=== PATIENT | male | born 1990 | race Caucasian/White ===

== ENCOUNTER 2017-06-15 12:51 | Inpatient (IN) | payer MEDICAID ==
[~2017-06-15] VITALS: Ht 172.7 cm; Wt 75.0 kg
[2017-06-15 12:51] VITALS: Ht 172.7 cm; Wt 75.0 kg
[2017-06-15 14:42] LABS: PLATELET COUNT 356 x10^3mcL (130-400); RED CELL DISTRIBUTION WIDTH 12.6 % (11.5-14.5)
[2017-06-15 15:03] LABS: CALCIUM 9.2 mg/dL (8.5-10.1); CARBON DIOXIDE 26.8 mmol/L (21-32); CHLORIDE SERUM 99 mmol/L (98-107); CREATININE SERUM 0.9 mg/dL (0.7-1.3); GFR1 > 60 mL/min; GLUCOSE SERUM 94 mg/dL (74-106); POTASSIUM SERUM 3.8 mmol/L (3.5-5.1); SODIUM SERUM 135 mmol/L (136-145)
[2017-06-15 15:05] LABS: ALBUMIN 3.9 g/dL (3.4-5.0); ALKALINE PHOSPHATASE 97 U/L (46-116); ALT/SGPT 29 U/L (16-63); AST/SGOT 23 U/L (15-37); BILIRUBIN TOTAL 0.58 mg/dL (0.20-1.00); C REACTIVE PROTEIN 2.8 mg/dL (<=0.9); TOTAL PROTEIN, SERUM 8.1 g/dL (6.4-8.2)
[2017-06-15 15:17] LABS: BAND NEUTROPHIL 2 % (0-10); BASOPHIL 0 % (0-2); MONOCYTE 5 % (0-7); SEGMENTED NEUTROPHILS 87 % (37-75); rbc morphology (normal/abnorm) ABNORMAL (NORMAL)
[2017-06-15 15:58] LABS: ERYTHROCYTE SED RATE 21 mm/hr (0-15)
[2017-06-15 18:23] LABS: UA SPECIFIC GRAVITY 1.015 (1.005-1.035); microscopic required? YES; urine erythrocyte NEGATIVE (NEGATIVE)
[2017-06-15 21:06] VITALS: BP 151/84
[2017-06-15 22:01] LABS: MAGNESIUM 1.9 mg/dL (1.8-2.4); PHOSPHOROUS 1.9 mg/dL (2.5-4.9)
[2017-06-15 22:03] LABS: CHOLESTEROL/HDL RATIO 2.8
[2017-06-15 22:04] LABS: T3 TOTAL 1.09 ng/mL
[2017-06-15 22:14] LABS: T4(THYROXINE) 8.6 ug/dL (4.7-13.3)
[2017-06-16 01:14] LABS: AMPHETAMINE QUAL UR POSITIVE (NEG <=1000)
[2017-06-16 05:07] VITALS: BP 115/64
[2017-06-16 08:34] LABS: PLATELET COUNT 284 x10^3mcL (130-400); RED CELL DISTRIBUTION WIDTH 12.6 % (11.5-14.5)
[2017-06-16 08:40] LABS: CALCIUM 7.9 mg/dL (8.5-10.1); CARBON DIOXIDE 27.9 mmol/L (21-32); CHLORIDE SERUM 102 mmol/L (98-107); CREATININE SERUM 1.1 mg/dL (0.7-1.3); GFR1 > 60 mL/min; GLUCOSE SERUM 95 mg/dL (74-106); POTASSIUM SERUM 4.1 mmol/L (3.5-5.1); SODIUM SERUM 136 mmol/L (136-145)
[2017-06-16 09:44] VITALS: BP 117/68
[2017-06-16 11:21] LABS: BAND NEUTROPHIL 1 % (0-10); BASOPHIL 0 % (0-2); MONOCYTE 4 % (0-7); SEGMENTED NEUTROPHILS 93 % (37-75)
[2017-06-16 11:22] LABS: PLATELET MORPHOLOGY PLATELETS NORMAL; rbc morphology (normal/abnorm) NORMAL (NORMAL)
[2017-06-16 13:06] VITALS: BP 109/64
[2017-06-16 17:14] VITALS: BP 113/69
[2017-06-16 21:26] VITALS: BP 113/64
[2017-06-17 05:24] VITALS: BP 124/77
[2017-06-17 07:19] LABS: PLATELET COUNT 271 x10^3mcL (130-400); RED CELL DISTRIBUTION WIDTH 12.1 % (11.5-14.5)
[2017-06-17 07:48] LABS: CALCIUM 8.9 mg/dL (8.5-10.1); CARBON DIOXIDE 27.2 mmol/L (21-32); CHLORIDE SERUM 102 mmol/L (98-107); CREATININE SERUM 0.9 mg/dL (0.7-1.3); GFR1 > 60 mL/min; GLUCOSE SERUM 95 mg/dL (74-106); PHOSPHOROUS 2.3 mg/dL (2.5-4.9); POTASSIUM SERUM 3.9 mmol/L (3.5-5.1); SODIUM SERUM 138 mmol/L (136-145)
[2017-06-17 08:11] LABS: BAND NEUTROPHIL 2 % (0-10); BASOPHIL 0 % (0-2); MONOCYTE 4 % (0-7); SEGMENTED NEUTROPHILS 89 % (37-75)
[2017-06-17 08:12] LABS: PLATELET MORPHOLOGY PLATELETS NORMAL
[2017-06-17 09:00] VITALS: BP 124/85
[2017-06-17 18:11] VITALS: BP 121/83
[2017-06-17 21:17] VITALS: BP 99/54
[2017-06-18 05:13] VITALS: BP 113/55
[2017-06-18 06:24] LABS: BASOPHIL % 0.1 % (0-2); PLATELET COUNT 298 x10^3mcL (130-400); RED CELL DISTRIBUTION WIDTH 12.5 % (11.5-14.5)
[2017-06-18 06:53] LABS: CALCIUM 8.3 mg/dL (8.5-10.1); CARBON DIOXIDE 28.5 mmol/L (21-32); CHLORIDE SERUM 107 mmol/L (98-107); GFR1 > 60 mL/min; GLUCOSE SERUM 103 mg/dL (74-106); PHOSPHOROUS 3.3 mg/dL (2.5-4.9); POTASSIUM SERUM 4.2 mmol/L (3.5-5.1); SODIUM SERUM 144 mmol/L (136-145)
[2017-06-18 09:31] VITALS: BP 108/60
[2017-06-18] MEDS ORDERED: DOXYCYCLINE HY100 MG PO ×2 (11:05→12:04)
[2017-06-18] MEDS ORDERED: LAC PO ×2 (11:06→12:04)
[2017-06-18] MEDS ORDERED: APAP/HYDROCODON1 T13 PO ×2 (11:08→12:04)
[2017-06-18 12:43] VITALS: BP 108/60
== END 2017-06-18 16:33 | disposition home or self-care (01) | DRG 720 ==
LOC: ED 12:51 → MU 19:23 → DU 19:23 → MU 06-17 09:36
PROVIDERS: Family Medicine; Specialist; Student in an Organized Health Care Education/Training Program
DX: A41.9 Sepsis, unspecified organism (principal); N17.0 Acute kidney failure with tubular necrosis; E83.39 Other disorders of phosphorus metabolism; N45.3 Epididymo-orchitis; B96.89 Other specified bacterial agents as the cause of diseases classified elsewhere; F15.10 Other stimulant abuse, uncomplicated; F17.200 Nicotine dependence, unspecified, uncomplicated
CPT/HCPCS: 83880; 84439; J0694; J0696; J1170; J1885; J2270; J2405; J2543; J7030; Q0092